=== PATIENT | female | born 1930 | race Caucasian/White ===

== ENCOUNTER 2017-07-01 11:05 | Emergency (ER) | payer MEDICARE ==
[~2017-07-01] VITALS: Ht 157.5 cm; Wt 44.9 kg
[~2017-07-01 11:05] MED LIST: MULT-46 PO; PHEN100C80 PO
--- NOTE | 2017-07-01 11:05 | NUR ---
Patient was BIBA and taken to bed 12 via gurney per EMS.
[2017-07-01 11:07] VITALS: BP 200/109
--- NOTE | 2017-07-01 11:15 | NUR ---
87F BIBA FOR C/O GENERALIZED WEAKNESS FROM [facility]; PT ALSO REPORTS "SHOCKING ALL OVER HER BODY...AT TIMES MAINLY TO RIGHT SIDE OF BODY"; PT REPORTS CLEANING KITCHEN WHEN "SHOCKING" BEGAN; PT IS AOX3, MOVING ALL EXTREMITIES; RR ARE EVEN AND UNLABORED; PT DENIES ANY N/V/D, CP, OR SOB; PT REPORTS OF 3/10 PAIN TO RIGHT SIDE OF HER PAIN; ER MD AWARE OF PT STATUS; PT ON CM AND PULSE OX; WILL CONTINUE TO [facility].
--- NOTE | 2017-07-01 11:39 | NUR ---
PATIENT STRAIT CATHED AND URINE OBTAINED SPECIMEN SENT TO LAB.
--- NOTE | 2017-07-01 12:18 | NUR ---
Dr. Walden evaluating patient at bedside.
--- NOTE | 2017-07-01 12:23 | NUR ---
Patient taken to CT via [facility].
--- NOTE | 2017-07-01 12:32 | NUR ---
[facility].
[2017-07-01 12:59] LABS: RED BLOOD CELL COUNT(AUTO) 4.87 MIL/uL (4.20-5.40)
[2017-07-01 13:01] LABS: HEMATOCRIT 44.2 % (36-48); HEMOGLOBIN 14.4 g/dL (12.0-16.0); MEAN CORPUSCULAR HEMOGLOBIN 30 pg (27-31); MEAN CORPUSCULAR HGB CONC 33 g/dL (33-37); MEAN CORPUSCULAR VOLUME 91 fL (80-94); PLATELET COUNT (AUTO) 363 K/uL (140-450); RED CELL DISTRIBUTION WIDTH 13.6 % (11.6-13.7); WHITE BLOOD COUNT (AUTO) 10.2 K/uL (4.8-10.8)
[2017-07-01 13:12] LABS: PROTHROMBIN TIME 10.1 secs (10.8-13.4)
[2017-07-01 13:14] LABS: EOSINOPHILS % (MANUAL) 3 % (0-4); LYMPHOCYTES % (MANUAL) 23 % (20-46); MONOCYTES % (MANUAL) 8 % (5-12)
[2017-07-01 13:23] LABS: ANION GAP 12.1 (8-16); CARBON DIOXIDE 28.5 mmol/L (21-32); CHLORIDE 104 mmol/L (98-107); CREATININE 0.7 mg/dL (0.6-1.3); GLUCOSE 97 mg/dL (74-106); POTASSIUM 3.6 mmol/L (3.5-5.1); SODIUM SERUM 141 mmol/L (136-145); UREA NITROGEN, BLOOD 22 mg/dL (7-18)
[2017-07-01 13:28] LABS: ALBUMIN 4.1 g/dL (3.4-5.0); ASPARTATE AMINOTRANSFERASE 23 U/L (15-37); TOTAL BILIRUBIN 0.2 mg/dL (0.0-1.0)
--- NOTE | 2017-07-01 13:30 | NUR ---
Patient laying in gurney supine. Vital Signs within normal limits. Respirations even and unlabored. Nad. Will continue to monitor.
--- NOTE | 2017-07-01 14:30 | NUR ---
Patient laying in gurney supine. Vital Signs within normal limits. Respirations even and unlabored. Nad. Will continue to monitor.
--- NOTE | 2017-07-01 15:18 | NUR ---
Patient discharged with v/s stable. Written and verbal after care instructions given and explained. Patient verbalized understanding. Ambulance Transport with to [facility]. All questions addressed prior to discharge. Advised to follow up with PMD.
[2017-07-01 15:22] VITALS: BP 157/84
== END 2017-07-01 15:18 | disposition home or self-care (01) ==
LOC: MED 11:05
DX: R53.1 Weakness (principal); Z85.828 Personal history of other malignant neoplasm of skin
CPT/HCPCS: 70450; 71010; 80053; 81002; 82550; 82553; 82948; 83605; 83880; 84484; 85025; 85610; 85730; 87040; 93005; 99285; C1758; Q0092

== ENCOUNTER 2017-08-15 16:41 | Emergency (ER) | payer MEDICARE ==
[~2017-08-15] VITALS: Ht 160 cm; Wt 52.2 kg
[2017-08-15 16:45] VITALS: BP 189/94
--- NOTE | 2017-08-15 16:46 | NUR ---
Patient to bed 1 by EMS.
--- NOTE | 2017-08-15 16:52 | NUR ---
87/F laura from [facility] for evaluation of left leg pain. Per EMS, patient had a fall this am and now c/o left leg pain. Pt was ambulatory on scene according to medics. Patient has full ROM. Denies numbness and tingling. VSS.
[2017-08-15] MEDS ORDERED: KETOROLAC 30 MG/ML VIAL IM ONE (16:55)
--- NOTE | 2017-08-15 16:59 | NUR ---
Pt taken to x-ray
--- NOTE | 2017-08-15 17:29 | NUR ---
Pt back from x-ray and placed in bed 1.
--- NOTE | 2017-08-15 18:31 | NUR ---
jayshree Walker's son contacted and states he will be on his way to cloth picker her. I advised the patient her son was on his way.
--- NOTE | 2017-08-15 19:16 | NUR ---
Patient discharged with v/s stable. Written and verbal after care instructions given and explained. Patient alert, oriented and verbalized understanding of instructions. Wheel Chair Assisted with by caregiver. All questions addressed prior to discharge. ID band removed. Patient advised to follow up with PMD. Rx of tramadol 50mg and ibuprofen 400mg given. Patient educated on indication of medication including possible reaction and side effects. Opportunity to ask questions provided and answered.
[2017-08-15 19:18] VITALS: BP 166/77
== END 2017-08-15 19:16 | disposition home or self-care (01) ==
LOC: MED 16:41
DX: M79.662 Pain in left lower leg (principal); Z85.828 Personal history of other malignant neoplasm of skin; M19.90 Unspecified osteoarthritis, unspecified site
CPT/HCPCS: 73502; 73552; 73562; 99284; J1885

== ENCOUNTER 2017-08-19 15:35 | Emergency (ER) | payer MEDICARE ==
[~2017-08-19] VITALS: Ht 172.7 cm; Wt 47.6 kg
[2017-08-19 15:40] VITALS: BP 178/91
--- NOTE | 2017-08-19 15:43 | NUR ---
Pt place in bed 4 by EMS.
--- NOTE | 2017-08-19 16:01 | NUR ---
PATIENT laura EMS from [facility], abd pain and no bowel movement x1 week. ASKED PT IF SHE HAS ABD PAIN PT DENIES ANY PAIN AT THIS TIME;NO FACIAL GRIMMACING/MOANING NOTED;PT STATES"I HAVE NO PAIN:"I JUST CANT'T G TO THE RESTROOM"DENIES N/V/D; SKIN IS PINK/WARM/DRY; AAOX4 WITH EVEN AND STEADY GAIT; LUNGS CLEAR BL; HR EVEN AND REGULAR; PT DENIES ANY FEVER, CP, SOB, OR COUGH AT THIS TIME; PATIENT STATES PAIN OF 0/10 AT THIS TIME; VSS; PATIENT POSITIONED FOR COMFORT; HOB ELEVATED; BEDRAILS UP X2; BED DOWN. ER MD MADE AWARE OF PT STATUS.
--- NOTE | 2017-08-19 16:33 | NUR ---
PT UNABLE TO GIVE URINE SPECIMEN AT THIS TIME.
--- NOTE | 2017-08-19 18:01 | NUR ---
Dr. Walden evaluating patient at bedside.
--- NOTE | 2017-08-19 18:35 | NUR ---
CALLED MR YANIRA GLYNN INFORMED HIM REGARDING PT STATUS AND THAT WE ARRANGE HIS MOTHERS TRANSPORT TO HER APARTMENT.
--- NOTE | 2017-08-19 18:52 | NUR ---
Pt provided with a meal tray, patient is eating and tolerating food well, awaiting [facility] for transport back home.
--- NOTE | 2017-08-19 19:01 | NUR ---
Patient discharged with v/s stable. Written and verbal after care instructions given and explained. Patient alert, oriented and verbalized understanding of instructions. Wheel Chair Assisted with to home. All questions addressed prior to discharge. ID band removed. Patient advised to follow up with PMD. Rx of MAGNESIUM CITRATE given. Patient educated on indication of medication including possible reaction and side effects. Opportunity to ask questions provided and answered.EXPLAINED DC PAPERWORKS TO PT AND [facility] TRANSPORT STAFF ARACELY;
[2017-08-19 19:02] VITALS: BP 164/86
== END 2017-08-19 19:01 | disposition home or self-care (01) ==
LOC: MED 15:35
DX: K59.00 Constipation, unspecified (principal); Z85.828 Personal history of other malignant neoplasm of skin; M06.9 Rheumatoid arthritis, unspecified
CPT/HCPCS: 99284